=== PATIENT | female | born 1930 | race Caucasian/White ===

== ENCOUNTER 2021-12-22 09:38 | Emergency (ER) | payer MEDICARE ==
[~2021-12-22] VITALS: Ht 160 cm; Wt 52.0 kg
[2021-12-22 15:20] VITALS: BP 187/98
== END 2021-12-22 15:26 | disposition home or self-care (01) ==
LOC: ER 09:38
DX: M25.552 Pain in left hip (principal); R51.9 Headache, unspecified; I10 Essential (primary) hypertension; E03.9 Hypothyroidism, unspecified; Z88.2 Allergy status to sulfonamides; W18.09XA Striking against other object with subsequent fall, initial encounter; Y93.89 Activity, other specified; Y92.89 Other specified places as the place of occurrence of the external cause; Y99.8 Other external cause status
CPT/HCPCS: 70450; 71045; 72125; 72192; 73502; 99284